=== PATIENT | male | born 1950 | race Caucasian/White ===

== ENCOUNTER → 2019-12-11 18:00 | Outpatient (CLI) | payer MEDICARE, OTHER, SELFPAY | PROVIDERS: PCP Family Medicine; Referring Provider Clinical Nurse Specialist; Visit Provider Clinical Nurse Specialist | DX: U07.1 COVID-19 (principal) | CPT/HCPCS: 87635; 94799; U0003 ==

== ENCOUNTER 2019-12-19 16:57 | Inpatient (IN) | payer MEDICARE, OTHER, SELFPAY ==
[2019-12-19] VITALS (10 sets, daily range): BP systolic 143–176; BP diastolic 86–112; PULSE 77–89; RESP 15–16; TEMP 36.6–37.3; O2SAT 93–95; BMI 29.9; BMI 30.6
--- NOTE | 2019-12-19 17:23 | EKG12_ITS ---
Test Reason : COVID Blood Pressure : / mmHG Vent. Rate : 086 BPM Atrial Rate : 086 BPM P-R Int : 194 ms QRS Dur : 086 ms QT Int : 402 ms P-R-T Axes : 054 -12 074 degrees QTc Int : 481 ms Sinus rhythm with Premature supraventricular complexes and with occasional Premature ventricular comp lexes Septal infarct , age undetermined Abnormal ECG Confirmed by WILLIAN KOCH, TREY ([id number]), mapping editor BRENDON CARLOS ([id number]) on 12/22/2019 9:31:52 AM Referred By: AZRA Confirmed By:TREY DORSEY MD
--- NOTE | 2019-12-19 17:24 | ED.DCSUM_ITS ---
History of Present Illness Chief Complaint: Shortness of Breath Informant: Patient Onset: Days Context: Gradual Onset Timing: Intermittent Current Severity: Mild Maximum Severity: Moderate Narrative: Patient present secondary to increased shortness of breath. He was diagnosed with Covid on the . He states he started getting symptoms of congestion and cough on the . He thought this was secondary to allergies as he had been out mowing his field without a mask on. He was tested on the and his Covid test was positive. Patient states he is had a couple episodes since that time where he has felt short of breath, the worst of which was last evening. He states he had to sleep sitting up last night due to increased shortness of breath when lying flat. He does have cough but states it has been significantly improving over the past couple of days. T-max was 100.0. - Past Medical History (1) Anxiety Status: Chronic (2) History of gastroesophageal reflux (GERD) Status: Chronic (3) History of hypertension Status: Chronic Past Medical History - Allergies and Home Meds Allergies/Adverse Reactions: Allergies No Known Allergies Allergy (Verified 12/19/19 16:59) Primary Care Physician: Luis Pak MD [Primary Care Provider] - Past Medical History: None Surgical History: total knee arthroplasty Smoking Status: Former smoker Review of Systems General: Denies: Chills, Fever Eyes: Denies: Visual changes - bilaterally ENT: Denies: Bilateral ear pain Cardiovascular: Denies: Chest pain Respiratory: Reports: Dyspnea, Cough - Minimal cough. Denies: Sputum Gastrointestinal: Denies: Abdominal pain, Nausea, Vomiting, Diarrhea Genitourinary: Denies: Dysuria Musculoskeletal: Denies: Swelling, Extremity Pain Skin: Denies: Rash Neurological: Denies: Headache Hematologic: Denies: Easy bruising, Easy bleeding Allergy: Denies: Uticaria Physical Exam Vital Signs/Narrative: Vital Signs Temp Pulse Resp BP Pulse Ox 12/19/19 17:12 83 16 162/93 H 95 12/19/19 16:58 98 F 89 16 154/112 H 93 Inital Vital Signs reviewed: Yes General: Well nourished, Well developed Head: Normocephalic ENT: Moist mucous membranes Neck: Supple Cardiovascular: Regular rate, Regular rhythm Respiratory: No distress, CTA bilaterally Abdomen: Soft, Nontender Extremities: Nontender Skin: Normal color, No rash Neurological: Alert, Oriented x3, Normal Strength, Normal Sensation Psychological: Normal affect Diagnostic/Tx/Re-eval Impressions Chest X-Ray 12/19/19 17:55 IMPRESSION: Hyperexpansion suggesting a component of COPD without acute consolidation, infiltrates, pleural effusion or cardiomegaly. Electronically Signed: Candace Downey MD at 18:18 EDT , Service support , 12/19/19 17:55 Chest 1 View (Portable) [RAD] Stat Laboratory Results 12/19/19 12/19/19 12/19/19 17:40 17:40 17:40 WBC 3.2 L RBC 4.95 Hgb 14.4 Hct 43.6 MCV 88.1 MCH 29.1 MCHC 33.0 RDW Std Deviation 42.5 RDW Coeff of Shira 13.2 Plt Count 188 MPV 9.9 Immature Gran % (Auto) 0.300 Neut % (Auto) 59.0 Lymph % (Auto) 28.6 Fajardo % (Auto) 10.9 H Eos % (Auto) 0.9 Baso % (Auto) 0.3 Absolute Neuts (auto) 1.9 L Absolute Lymphs (auto) 0.92 Nucleated RBC % 0 Differential Comment SCANNED D-Dimer Quant (PE/DVT) 0.55 H* Sodium 144 Potassium 3.0 L Chloride 110 H Carbon Dioxide 26.0 Anion Gap 8 BUN 15 Creatinine 0.70 Estim Creat Clear Calc 85.67 Est GFR (MDRD) Af Amer 146 Est GFR (MDRD) Non-Af 120 BUN/Creatinine Ratio 21.6 H Glucose 93 Calcium 8.6 Troponin I 0.088 H B-Natriuretic Peptide 12/19/19 17:40 WBC RBC Hgb Hct MCV MCH MCHC RDW Std Deviation RDW Coeff of Sihra Plt Count MPV Immature Gran % (Auto) Neut % (Auto) Lymph % (Auto) Fajardo % (Auto) Eos % (Auto) Baso % (Auto) Absolute Neuts (auto) Absolute Lymphs (auto) Nucleated RBC % Differential Comment D-Dimer Quant (PE/DVT) Sodium Potassium Chloride Carbon Dioxide Anion Gap BUN Creatinine Estim Creat Clear Calc Est GFR (MDRD) Af Amer Est GFR (MDRD) Non-Af BUN/Creatinine Ratio Glucose Calcium Troponin I B-Natriuretic Peptide 35.3 - EKG Initial EKG Interpretation: Sinus Rhythm - Sinus 86 with PACs. No acute ischemia. Nonspecific lateral T wave flattening. - Medical Decision Making Patient is observed on quality assurance monitor body throughout his ED stay. No arrhythmias noted. O2 sat has remained stable at 93 to 94% on room air. Test results are discussed with the patient. Chest x-ray is clear. D-dimer is 0.55, normal when age-adjusted. His potassium is slightly low at 3.0 and oral potassium replacement will be given. His troponin is abnormal at 0.088. I do not see any ischemic changes on his EKG. Patient denies any known history of cardiac disease and states he had a couple heart caths when he was in his early 50s that were normal. With the patient having a few spells of more significant shortness of breath, I do question if this may be cardiac in etiology and not related to his Covid infection. I have recommended observation overnight for cycling of cardiac enzymes and further evaluation. ED Disposition - Plan for ED Patient: Disposition: Acute Care Hospital [facility] Diagnosis: COVID-19, Hypokalemia, Elevated troponin Referrals: Luis Pak MD [Primary Care Provider] -
[2019-12-19 17:55] LABS: Absolute Lymphocyte Count 0.92 X10^3/uL (0.83-4.51); Absolute Neutrophil Count 1.9 X10^3/uL (2.0-7.7); Basophil# 0.01 X10^3/uL; Basophil% 0.3 % (0-1); Eosinophil# 0.03 X10^3/uL; Eosinophils% 0.9 % (0-5); Hematocrit 43.6 % (40-54); Hemoglobin 14.4 g/dL (13.0-16.5); Lymphocyte # 0.92 X10^3/ul (4.0); Lymphocyte % 28.6 % (19-41); Mean Corpuscular Hgb 29.1 pg (27.0-32.0); Mean Corpuscular Volume 88.1 fL (80-94); Mean Platelet Vol. 9.9 fl (6.2-12.0); Monocyte# 0.35 X10^3/uL; Monocyte% 10.9 % (0-10); NRBC Flagged by Analyzer 0 % (0-5); POSITIVE MORPHOLOGY YES; Platelet Count 188 K/mm3 (150-450); RBC Distribution Width CV 13.2 % (11.6-14.6); RBC Distribution Width SD 42.5 fl (35.1-43.9); Red Blood Count 4.95 M/mm3 (4.6-6.2); White Blood Count 3.2 K/mm3 (4.4-11.0)
--- NOTE | 2019-12-19 17:55 | RAD_ITS ---
STUDY: X-RAY CHEST REASON FOR EXAM: Male, 69 years old. SOB, TESTED + FOR COVID 1 WK AGO TECHNIQUE: 1 view COMPARISON: Prior chest radiograph of 09/28/2011 FINDINGS: Generalized hyperexpansion without new infiltrates, consolidation or pleural effusion. There is no demonstrated pleural abnormality. Normal size heart. Normal mediastinum and [place]. Normal visualized pulmonary arteries. Mild elongation of the thoracic aorta. There are diffuse degenerative changes of the visualized thoracic spine. Normal visualized ribs, clavicles, and shoulders. There is no demonstrated abnormality of the visualized soft tissue structures of the upper abdomen. RAD/Chest 1 View (Portable) IMPRESSION: Hyperexpansion suggesting a component of COPD without acute consolidation, infiltrates, pleural effusion or cardiomegaly. Electronically Signed: Candace Downey MD at 18:18 EDT , Service support ,
[2019-12-19 18:02] LABS: D-Dimer Quantitative (DVT/PE) 0.55 FEU/ug/m (0.27-0.49)
[2019-12-19 18:03] LABS: Differential Indicated SCAN CRITERIA MET
[2019-12-19 18:08] LABS: Anion Gap 8 (5-15); BUN 15 mg/dL (7-18); BUN/Creat Ratio 21.6 RATIO (10-20); Calcium,Total 8.6 mg/dL (8.5-10.1); Chloride 110 mmol/L (98-107); EST Glomerular Filtration Rate 120 mL/min (>60); Est Glom Filt Rate - Afr Amer 146 mL/min (>60); Estimated Creatinine Clearance 85.67 ml/min; Glucose 93 mg/dL (74-106); Sodium Level 144 mmol/L (136-145)
[2019-12-19 18:25] LABS: Differential Comment SCANNED
[2019-12-19 18:28] LABS: BNP,B-Type NATRIURETIC PEPTIDE 35.3 pg/mL (0-100)
--- NOTE | 2019-12-19 19:28 | PCM.HP.STD ---
Problem List (1) Anxiety Status: Chronic (2) COVID-19 Status: Acute (3) Hypokalemia Status: Acute (4) Elevated troponin Status: Acute (5) History of hypertension Status: Chronic (6) History of gastroesophageal reflux (GERD) Status: Chronic History of Present Illness Date of Admission: 12/19/19 Chief Complaint: sob The patient is a 69 year old M with a significant history of hypertension who presented to emergency department with progressively worsening shortness of breath. Reportedly patient's mowed on December 05 and developed sinus congestion and shortness of breath. He was diagnosed with cause 8 on December 10. Again 3 days ago he noticed a progressively worsening shortness of breath which is more prevalent at night. Also at daytime he has some on and off shortness of breath. Reports proximal nocturnal dyspnea; orthopnea and cough; cough. He denies any change in taste or smell sensation. He reports occasional wheezing. He denies a history of COPD. At emergent department patient troponin was elevated so a decision was made to admit patient. He denies chest pain. Past Medical History Past Medical History (Chronic Problems): Chronic Problems Anxiety (Chronic) History of hypertension (Chronic) History of gastroesophageal reflux (GERD) (Chronic) Allergies No Known Allergies Allergy (Verified 12/19/19 16:59) Home Medications: Ambulatory Orders Medication Instructions Recorded Citalopram Hydrobromide 20 mg PO DAILY 12/19/19 [Citalopram HBr] Fluticasone 0.05% [Flonase Nasal 2 spray NASAL DAILY 12/19/19 [place]] Surgical History: cholecystectomy, total knee arthroplasty Smoking Status: Former smoker Alcohol: Occasional - *Family History Maternal History Items: - - His mother has gastrointestinal problems Paternal History Items: Heart Disease Review of Systems Constitutional: Reports: Fever. Denies: Weight Change HEENT: Reports: Nasal Congestion, Sinus Congestion. Denies: Head Aches, Sinus Drainage Cardiovascular: Reports: Orthopnea, Paroxysmal Noc. Dyspnea. Denies: Chest Pain, Palpitations Respiratory: Reports: Cough, Shortness of breath at rest. Denies: Sputum production Gastrointestinal: Denies: Abdominal Pain, Nausea, Vomiting Genitourinary: Denies: Dysuria Musculoskeletal: Denies: Joint Pain, Joint Tenderness Skin: Denies: Rash, Wounds Neurological: Denies: Numbness, Tingling, Focal weakness Psychiatric: Denies: Anxiety, Depression, Homicidal Ideations, Suicidal Ideations Hematologic/ Lymphatic: Denies: Easy Bruising, Easy Bleeding VTE Information - Inpt Only VTE Present on Admission: No VTE Mechan Device Prophylaxis: None VTE Pharm Prophylaxis ordered?: Yes Patient Problems: Active and Suspected Problems COVID-19 (Acute) Hypokalemia (Acute) Elevated troponin (Acute) - Physical Exam Vitals/I&O's: Vital Signs Temp Pulse Resp BP Pulse Ox 98 F 83 16 162/93 H 95 12/19/19 16:58 12/19/19 17:12 12/19/19 17:12 12/19/19 17:12 12/19/19 17:12 Oxygen Delivery Method Room Air Weight: 108.862 kg Body Mass Index (BMI) 29.9 General: Alert, Oriented x3, Cooperative HEENT: Atraumatic, PERRLA, EOMI, Normocephalic Neck: Supple, No JVD, Negative Carotid Bruits Lungs: No rhonchi, No wheeze, No rales, Diminished Cardiovascular: Regular rate, Normal S1, Normal S2, No murmurs Abdomen: Bowel Sounds Present, Soft, Non Tender Extremities: No edema, Capillary Refill Less than 3 Seconds Skin: No rashes, No breakdown Musculoskeletal: No Tenderness to Palpation of Joints or Extremities, - - Amputated fifth toed of right foot. Neurological: Cranial nerves II-XII grossly intact Psych/Mental Status: Normal Affect, Appropriate Laboratory Results 12/19/19 17:40: WBC 3.2 L, RBC 4.95, Hgb 14.4, Hct 43.6, MCV 88.1, MCH 29.1, MCHC 33.0, RDW Std Deviation 42.5, RDW Coeff of Shira 13.2, Plt Count 188, MPV 9.9, Immature Gran % (Auto) 0.300, Neut % (Auto) 59.0, Lymph % (Auto) 28.6, Ransom % (Auto) 10.9 H, Eos % (Auto) 0.9, Baso % (Auto) 0.3, Absolute Neuts (auto) 1.9 L, Absolute Lymphs (auto) 0.92, Nucleated RBC % 0, Differential Comment SCANNED 12/19/19 17:40: D-Dimer Quant (PE/DVT) 0.55 H* 12/19/19 17:40: Sodium 144, Potassium 3.0 L, Chloride 110 H, Carbon Dioxide 26.0, Anion Gap 8, BUN 15, Creatinine 0.70, Estim Creat Clear Calc 85.67, Est GFR (MDRD) Af Amer 146, Est GFR (MDRD) Non-Af 120, BUN/Creatinine Ratio 21.6 H, Glucose 93, Calcium 8.6, Troponin I 0.088 H 12/19/19 17:40: B-Natriuretic Peptide 35.3 Assessment/Plan All Active Problems COVID-19 (Acute) Hypokalemia (Acute) Elevated troponin (Acute) The patient is a 69 year old M with a significant history of hypertension who presented to emergency department with progressively worsening shortness of breath; paroxysmal nocturnal dyspnea; dry cough; nasal congestion; in the setting of COVID-19 infection who was found to have elevated troponin. SARS-2 COVID-19 infection Positive covid test on December 11, 2019. We will start patient on dexamethasone 6 mg p.o. daily. Check CMP We will get a procalcitonin; strep pneumonia antigen; and Legionella urine antigen. PRN pro-air inhalation ordered. Schedule Mucinex ordered. Continue home fluticasone. We will consult service station equipment mechanic. Enhanced isolation precautions. Elevated troponin Patient with no chest pain. Demand ischemia. EKG showed PAC and T wave flattening in aVL; V5 and V6. Received aspirin 324 mg in emergency department Aspirin 81 mg daily ordered. BNP is unremarkable We will trend troponin Hypokalemia Received a pubertal supplementation emergency department Will order additional IV proton supplementation Trend CMP. Elevated d-dimer Normal per age adjusted. On therapeutic dose DVT prophylaxis SCD. Covid protocol. Inpatient E&M: 99513 Init Hosp L3
[2019-12-19 20:02] LABS: Magnesium 2.3 mg/dL (1.6-2.6)
[2019-12-19] MEDS: Aspirin 81 MG TAB.CHEW 324 MG PO (20:16)
[2019-12-19] MEDS: Potassium Chloride 10mEq/100mL 10 MEQ/100 ML IV.SOLN. 100 MEQ IV BOLUS ×3 (21:00→23:56)
[2019-12-19] MEDS: dexAMETHasone 4 MG Tablet 6 MG PO (22:10)
[2019-12-19] MEDS: Enoxaparin 30 MG/0.3 ML Syringe SC (22:25)
[2019-12-20] VITALS (39 sets, daily range): BP systolic 114–181; BP diastolic 69–110; PULSE 73–145; RESP 13–96; TEMP 36.6–37.2; O2SAT 91–97
[2019-12-20] MEDS: hydrALAZINE 20 MG/ML Vial 5 MG IV (00:54)
[2019-12-20] MEDS: Potassium Chloride 10mEq/100mL 10 MEQ/100 ML IV.SOLN. 100 MEQ IV BOLUS (01:10)
--- NOTE | 2019-12-20 01:58 | EKG12_ITS ---
Test Reason : AFIB Blood Pressure : / mmHG Vent. Rate : 102 BPM Atrial Rate : 102 BPM P-R Int : 000 ms QRS Dur : 078 ms QT Int : 352 ms P-R-T Axes : 000 -04 114 degrees QTc Int : 458 ms Atrial fibrillation Abnormal ECG When compared with ECG of 19-DEC-2019 17:41, Junctional rhythm has replaced Sinus rhythm Nonspecific T wave abnormality now evident in Inferior leads Confirmed by ENDER KOCH, CHRISTINA ([id number]), editorial manager LETICIA NUNEZ ([id number] on 12/30/2019 8:53:25 AM Referred By: Melissa Contreras Confirmed By:CHEO HANDLEY MD
--- NOTE | 2019-12-20 02:02 | EKG12_ITS ---
Test Reason : AFIB Blood Pressure : / mmHG Vent. Rate : 143 BPM Atrial Rate : 096 BPM P-R Int : 000 ms QRS Dur : 088 ms QT Int : 312 ms P-R-T Axes : 000 -11 078 degrees QTc Int : 481 ms Atrial fibrillation with premature ventricular or aberrantly conducted complexes Abnormal ECG When compared with ECG of 20-DEC-2019 01:58, MANUAL COMPARISON REQUIRED, DATA IS UNCONFIRMED Confirmed by ENDER KOCH, CHRISTINA ([id number]), editor trade journal LETICIA NUNEZ ([id number] on 12/30/2019 8:53:42 AM Referred By: Melissa Contreras Confirmed By:CHEO HANDLEY MD
--- NOTE | 2019-12-20 02:24 | PCM.PN.BLA ---
Progress Note A. fib with RVR?patient went into A. fib with RVR with heart rate in the 150s. Cardizem 10 mg IV bolus x1. Stop hydralazine. Therapeutic dose of Lovenox ordered. Magnesium is normal. Potassium has been replaced. Will check TSH. Will get echocardiogram. STROKE Vital Signs/Narrative: Vital Signs Pulse BP BP 12/20/19 01:00 73 159/87 H 12/20/19 00:54 83 166/102 H 12/20/19 00:45 91 166/102 H 12/20/19 00:30 80 161/110 H 12/20/19 00:10 163/88 H 12/19/19 23:45 143/86 H 12/19/19 23:25 77 12/19/19 23:15 176/94 H
[2019-12-20] MEDS: dilTIAZem 25 MG/5 ML Vial 10 MG IV BOLUS ×2 (02:33→03:30)
[2019-12-20] MEDS: Enoxaparin 80 MG/0.8 ML Syringe SC (02:42)
--- NOTE | 2019-12-20 02:45 | NURSING ---
afib noted on monitor with heart rate up to 150's, EKG obtained, pt complaining of some SOB, placed on 2L NC with improvement, no chest/back/arm/jaw pain, no palpitations, MD aware, new orders received.
[2019-12-20 03:18] LABS: Thyroid Stim Hormone (TSH) 1.45 uIU/mL (0.358-3.74)
[2019-12-20] MEDS: 0.9% Saline Lock 10 ML Syringe IV (03:31)
[2019-12-20 04:15] LABS: Absolute Lymphocyte Count 0.46 X10^3/uL (0.83-4.51); Absolute Neutrophil Count 2.9 X10^3/uL (2.0-7.7); Hematocrit 44.6 % (40-54); Hemoglobin 14.7 g/dL (13.0-16.5); Lymphocyte # 0.46 X10^3/ul (4.0); Lymphocyte % 13.4 % (19-41); Mean Corpuscular Hgb 29.3 pg (27.0-32.0); Mean Corpuscular Volume 88.8 fL (80-94); Mean Platelet Vol. 10.3 fl (6.2-12.0); Monocyte# 0.11 X10^3/uL; Monocyte% 3.2 % (0-10); NRBC Flagged by Analyzer 0 % (0-5); Neutrophil # 2.86 X10^3/uL (2.7-7.7); Neutrophil % 83.1 % (47-70); POSITIVE DIFFERENTIAL YES; POSITIVE MORPHOLOGY YES; Platelet Count 198 K/mm3 (150-450); RBC Distribution Width CV 13.2 % (11.6-14.6); Red Blood Count 5.02 M/mm3 (4.6-6.2); White Blood Count 3.4 K/mm3 (4.4-11.0)
[2019-12-20 04:20] LABS: Differential Indicated SCAN CRITERIA MET
[2019-12-20 04:27] LABS: ALB/GLOB Ratio 0.8 RATIO (0.9-2.4); AST(SGOT) 50 U/L (15-37); Alanine Aminotransfer ALT/SGPT 73 U/L (16-61); Albumin, Serum 3.2 g/dL (3.2-5.0); Alkaline Phosphatase 80 U/L (45-117); Anion Gap 7 (5-15); BUN 12 mg/dL (7-18); BUN/Creat Ratio 19.7 RATIO (10-20); Calcium,Total 8.5 mg/dL (8.5-10.1); Chloride 110 mmol/L (98-107); Creatinine, Serum 0.61 mg/dL (0.70-1.30); EST Glomerular Filtration Rate 140 mL/min (>60); Est Glom Filt Rate - Afr Amer 169 mL/min (>60); Estimated Creatinine Clearance 85.67 ml/min; Globulin 4.2 g/dL (2.2-4.2); Glucose 127 mg/dL (74-106); Potassium 3.9 mmol/L (3.5-5.1); Protein, Total 7.4 g/dL (6.4-8.2); Sodium Level 141 mmol/L (136-145)
[2019-12-20 04:50] LABS: Differential Comment SCANNED
--- NOTE | 2019-12-20 07:38 | CON.PCM_ITS ---
Problem List (1) Atrial fibrillation, new onset Status: Acute (2) COVID-19 Status: Acute (3) Elevated troponin Status: Acute (4) History of hypertension Status: Chronic (5) History of gastroesophageal reflux (GERD) Status: Chronic (6) History of chest pain Status: Inactive Reason for Consult Date of Consultation: 12/20/19 Reason for Consultation: COVID, A. fib with RVR History of Present Illness: The patient is a 69 year old M, with past medical history listed below, who presented [facility] on 12/19/2019 secondary to progressive shortness of breath. Patient was reportedly diagnosed with COVID-19 on December 10 and was having cough and congestion. Patient had thought it was allergies, but then subsequently tested positive for COVID-19. Patient states he has had a couple of episodes of dyspnea, but overnight had difficulty with shortness of breath is, especially when lying flat. Patient states his highest temperature was 100 ?F. In the ER, patient was noted to be hypertensive at 162/93 and saturating 93 to 94% on room air. Chest x-ray was unremarkable and d-dimer was only slightly elevated. Potassium was low and troponin was slightly elevated. EKG was unremarkable. Patient was admitted to the floor for further evaluation and for cardiac rule out. While admitted to the intensive care unit/COVID cohort unit, patient developed A. fib with RVR. Patient had heart rates in the 150s and required Cardizem boluses for rate control. Patient was also placed on Lovenox therapy at therapeutic dosing. Patient has remained hypertensive throughout hospital stay and was requiring minimal nasal cannula oxygen to maintain saturations. Patient reports he feels subjectively improved compared to previous. Patient does admit that he has not really left the bed, so is unclear about his shortness of breath on exertion. Patient does have a cough that is nonproductive, but feels this is grossly unchanged. Patient denies any GI symptomatology. Patient denies any fevers or chills. Patient does have a previous smoking history and reports only occasional alcohol use. Patient does not report any history of obstructive lung disease in the past. Review of systems otherwise negative from a constitutional, HEENT, respiratory, cardiovascular, GI, genitourinary, musculoskeletal, skin, neurologic, psychiatric and hematologic system unless stated above. Past Medical History Past Medical History (Chronic Problems): Chronic Problems Anxiety (Chronic) History of hypertension (Chronic) History of gastroesophageal reflux (GERD) (Chronic) Allergies No Known Allergies Allergy (Verified 12/19/19 16:59) Home Medications: Ambulatory Orders Medication Instructions Recorded Amoxicillin/Potassium Clav 1 ea PO BID 12/19/19 [Augmentin 875-125 Tablet] Benzonatate [Tessalon Perle] 100 mg PO TID PRN PRN 12/19/19 Citalopram Hydrobromide 20 mg PO DAILY 12/19/19 [Citalopram HBr] Fluticasone 0.05% [Flonase Nasal 2 spray NASAL DAILY 12/19/19 [place]] Surgical History: cholecystectomy, total knee arthroplasty Smoking Status: Former smoker Alcohol: Occasional - *Family History Maternal History Items: - - His mother has gastrointestinal problems Paternal History Items: Heart Disease Review of Systems Comment: See HPI Patient Problems: Active and Suspected Problems COVID-19 (Acute) Hypokalemia (Acute) Elevated troponin (Acute) Atrial fibrillation, new onset (Acute) Objective: Chest x-ray was personally reviewed and does show some hyperinflation, but no infiltrates are noted. - Physical Exam Vitals/I&O's: Vital Signs Temp Pulse Resp BP Pulse Ox 37.2 C 102 H 15 133/78 H 93 12/20/19 03:15 12/20/19 07:24 12/20/19 04:30 12/20/19 04:45 12/20/19 04:30 Oxygen Flow Rate (L/min) 2 Oxygen Delivery Method Nasal Cannula Weight: 111 kg Body Mass Index (BMI) 30.6 Intake and Output for Last 24 Hours 12/18/19 12/19/19 12/20/19 23:59 23:59 23:59 Intake Total 320.25 / 320.25 522 / 522 Output Total 90 / 90 450 / 450 Balance 230.25 / 230.25 72 / 72 General: Alert, Oriented x3, Cooperative, No apparent distress, Well developed, Well nourished, - - Speaking in full sentences. HEENT: Atraumatic, PERRLA, EOMI, Normocephalic, - - No scleral icterus or injection noted Oral: Moist Mucosa, No Gingival or Mucosal Lesions/ Ulcerations Neck: Supple, No JVD, No Nodes, Trachea Midline Lungs: Diminished, Rales - Bilateral bases Cardiovascular: Normal S1, Normal S2, No murmurs, Irregular Rate, No rub noted, No Gallop, Tachycardic Abdomen: Bowel Sounds Present, Soft, Non Tender, Non-Distended Extremities: No clubbing, No cyanosis, No edema, Capillary Refill Less than 3 Seconds Skin: No rashes, No breakdown Musculoskeletal: No Tenderness to Palpation of Joints or Extremities Lymphatic: No Cervical, Supraclavicular, or Inguinal Adenopathy Neurological: Cranial nerves II-XII grossly intact, Neuro grossly intact, Motor Exam 5/5 strength throughout Psych/Mental Status: Alert and oriented to time, place, person, mood and affect Microbiology Past 72 Hours 12/19/19 23:10 Urine, Clean Catch Streptococcus pneumoniae Antigen (M - Final 12/19/19 23:10 Urine, Clean Catch Legionella Antigen - Final Laboratory Results 12/19/19 17:40: WBC 3.2 L, RBC 4.95, Hgb 14.4, Hct 43.6, MCV 88.1, MCH 29.1, MCHC 33.0, RDW Std Deviation 42.5, RDW Coeff of Shira 13.2, Plt Count 188, MPV 9.9, Immature Gran % (Auto) 0.300, Neut % (Auto) 59.0, Lymph % (Auto) 28.6, [place] % (Auto) 10.9 H, Eos % (Auto) 0.9, Baso % (Auto) 0.3, Absolute Neuts (auto) 1.9 L, Absolute Lymphs (auto) 0.92, Nucleated RBC % 0, Differential Comment SCANNED 12/19/19 17:40: D-Dimer Quant (PE/DVT) 0.55 H* 12/19/19 17:40: Sodium 144, Potassium 3.0 L, Chloride 110 H, Carbon Dioxide 26.0, Anion Gap 8, BUN 15, Creatinine 0.70, Estim Creat Clear Calc 85.67, Est GFR (MDRD) Af Amer 146, Est GFR (MDRD) Non-Af 120, BUN/Creatinine Ratio 21.6 H, Glucose 93, Calcium 8.6, Troponin I 0.088 H 12/19/19 17:40: B-Natriuretic Peptide 35.3 12/19/19 17:40: Magnesium 2.3 12/19/19 21:20: Procalcitonin Pending 12/19/19 21:20: Troponin I 0.073 H 12/20/19 00:10: Troponin I 0.075 H 12/20/19 00:10: TSH 1.45 12/20/19 03:40: WBC 3.4 L, RBC 5.02, Hgb 14.7, Hct 44.6, MCV 88.8, MCH 29.3, MCHC 33.0, RDW Std Deviation 43.0, RDW Coeff of Shira 13.2, Plt Count 198, MPV 10.3, Immature Gran % (Auto) 0.300, Neut % (Auto) 83.1 H, Lymph % (Auto) 13.4 L, [place] % (Auto) 3.2, Eos % (Auto) 0.0, Baso % (Auto) 0.0, Absolute Neuts (auto) 2.9, Absolute Lymphs (auto) 0.46 L, Nucleated RBC % 0, Differential Comment SCANNED, Diff Path Review August12/20/19 03:40: Sodium 141, Potassium 3.9, Chloride 110 H, Carbon Dioxide 24.0, Anion Gap 7, BUN 12, Creatinine 0.61 L, Estim Creat Clear Calc 85.67, Est GFR (MDRD) Af Amer 169, Est GFR (MDRD) Non-Af 140, BUN/Creatinine Ratio 19.7, Glucose 127 H, Calcium 8.5, Total Bilirubin 0.90, AST 50 H, ALT 73 H, Alkaline Phosphatase 80, Total Protein 7.4, Albumin 3.2, Globulin 4.2, Albumin/Globulin Ratio 0.8 L Current Medications Acetaminophen (Tylenol) 650 mg PO Q6H PRN PRN PRN Reason: Pain Score 1-10/Temp > 100.7 F Albuterol Sulfate (Ventolin Hfa (Sp)) 2 puff INHALATION Q4H PRN PRN PRN Reason: SOB/WHEEZING Aspirin (Aspirin, Baby) 81 mg PO DAILY@0800 [facility] Benzonatate (Tessalon Perle) 100 mg PO TID PRN PRN PRN Reason: COUGH Carvedilol (Coreg) 6.25 mg PO BIDCM [facility] Citalopram Hydrobromide (Celexa) 5 mg PO DAILY [facility] Dexamethasone (Decadron) 6 mg PO DAILY@0800 [facility] Last Admin: 12/19/19 22:10 Dose: 6 mg Documented by: Enoxaparin Sodium (Lovenox) 110 mg SC Q12 JAMES Fluticasone Propionate (Flonase Nasal [place]) 2 spray NASAL DAILY JAMES Sodium Chloride () 250 mls @ 15 mls/hr IV .[id number] PRN PRN Reason: Saline Flush Last Infusion: 12/20/19 06:38 Dose: 0 mls/hr Documented by: Sodium Chloride () 250 mls @ 15 mls/hr IV .[id number] PRN PRN Reason: Additional IVPB Infusion Melatonin (Melatonin) 3 mg PO QHS PRN PRN PRN Reason: INSOMNIA Miscellaneous Information (Pocket Chamber) 1 each INHALATION PRN PRN PRN Reason: USE WITH VENTOLIN MDI Sodium Chloride () 10 - 40 ml IV UD PRN PRN Reason: SALINE FLUSH Last Admin: 12/20/19 03:31 Dose: 40 ml Documented by: Clinical Impression(s) from Imaging Studies Chest X-Ray 12/19/19 17:55 IMPRESSION: Hyperexpansion suggesting a component of COPD without acute consolidation, infiltrates, pleural effusion or cardiomegaly. Electronically Signed: Candace Downey MD at 18:18 EDT , Service support , Assessment/Plan Active and Suspected Problems COVID-19 (Acute) Hypokalemia (Acute) Elevated troponin (Acute) Atrial fibrillation, new onset (Acute) RECOMMENDATIONS: 1. Initiate therapeutic anticoagulation 2. Add Coreg for rate control and hypertension 3. Wean oxygen as tolerated 4. Defer to hospitalist on cardiology referral 5. Hold on convalescent serum and Remdesivir for now 6. Await echocardiogram 7. Outpatient complete PFT IMPRESSIONS: 1. Acute hypoxic respiratory insufficiency secondary to probable pulmonary edema/possible COPD Goal suspicion for pulmonary edema leading to more hypoxia than COVID-19. Patient's chest x-ray was unremarkable, but does show some hyperinflation, so COPD would be a consideration. Wean oxygen as tolerated. Anticipate some improvement after rate control. 2. Acute CHF secondary to A. fib with RVR Patient does not have a previous echocardiogram. Would assume an element of diastolic dysfunction given age that may be exacerbated by A. fib with RVR. Rate control will be added. Patient will be placed on therapeutic Lovenox for now, but may be able to be switched to a 10 a inhibitor tomorrow. Echocardiogram has been ordered. Would defer to hospitalist on cardiology involvement. 3. COVID-19 infection Patient does have some hyperinflation on chest x-ray with presentation, but no significant groundglass opacity. Patient is on day 8 of infection, so may progress from here. Would hold off on antiviral and convalescent serum for now. Current hypoxia likely secondary to A. fib with RVR more than pneumonitis from the COVID-19. Cannot exclude the stress of COVID-19 leading to new onset A. fib RVR. 4. Depression/elevated troponin/hypokalemia/obesity Complicates care, management, recovery and prognosis. Okay to continue baseline antidepressant. Potassium supplementation as indicated. Inpatient E&M: 52722 Init Hosp L3
[2019-12-20] MEDS: Fluticasone 0.05% 1 SPRAY NASAL.SRY 2 SPRAY NASAL (08:14)
[2019-12-20] MEDS: dexAMETHasone 4 MG Tablet 6 MG PO (08:15)
[2019-12-20] MEDS: Citalopram 10 MG Tablet 5 MG PO (08:17)
[2019-12-20] MEDS: Carvedilol 6.25 MG Tablet PO ×2 (08:18→20:30)
[2019-12-20] MEDS: Aspirin 81 MG TAB.CHEW PO (08:19)
[2019-12-20] MEDS: Enoxaparin 120 MG/0.8 ML Syringe 110 MG SC ×2 (08:19→20:29)
[2019-12-20 09:16] LABS: Procalcitonin 0.04 ng/mL (0.00-0.09)
--- NOTE | 2019-12-20 09:59 | PCM.PN.HOSP ---
Patient Problems: Active and Suspected Problems COVID-19 (Acute) Hypokalemia (Acute) Elevated troponin (Acute) Atrial fibrillation, new onset (Acute) Subjective: Patient seen and examined. He feels much better today and states that shortness of breath is improved. He denies any fever or chills, chest pain, nausea vomiting or diarrhea. Review of systems otherwise negative. He has been admitted for COVID-19 infection and A. fib with RVR. Labs and vitals reviewed. Heart rate is in the 110s to 120s today. He has been started on p.o. carvedilol. Vitals/I&O's: Vital Signs Temp Pulse Resp BP Pulse Ox 98.9 F 102 H 15 133/78 H 93 12/20/19 03:15 12/20/19 07:24 12/20/19 04:30 12/20/19 04:45 12/20/19 08:00 Oxygen Flow Rate (L/min) 2 Oxygen Delivery Method Room Air Weight: 244 lb 11.41 oz Body Mass Index (BMI) 30.6 Intake and Output for Last 24 Hours 12/18/19 12/19/19 12/20/19 23:59 23:59 23:59 Intake Total 320.25 / 320.25 522 / 522 Output Total 90 / 90 450 / 450 Balance 230.25 / 230.25 72 / 72 General: Alert, Oriented x3, Cooperative, No apparent distress HEENT: Atraumatic, PERRLA, EOMI, Normocephalic Oral: Moist Mucosa Neck: Supple, No JVD, Negative Carotid Bruits Lungs: - - Mildly diminished breath sounds bibasilar. No wheezes or crackles. On 2 L of oxygen. Cardiovascular: Normal S2, Irregular Rate - A. fib with RVR., Tachycardic Abdomen: Bowel Sounds Present, Soft, Non Tender, Non-Distended, No Hepato-splenomegaly Extremities: No clubbing, No cyanosis, No edema, Capillary Refill Less than 3 Seconds Skin: No rashes, No breakdown Musculoskeletal: No Tenderness to Palpation of Joints or Extremities Lymphatic: No Cervical, Supraclavicular, or Inguinal Adenopathy Neurological: Cranial nerves II-XII grossly intact, Neuro grossly intact, Motor Exam 5/5 strength throughout Psych/Mental Status: Normal Affect, Appropriate, Alert and oriented to time, place, person, mood and affect Microbiology Past 72 Hours 12/19/19 23:10 Urine, Clean Catch Streptococcus pneumoniae Antigen (M - Final 12/19/19 23:10 Urine, Clean Catch Legionella Antigen - Final Laboratory Results 12/19/19 17:40: WBC 3.2 L, RBC 4.95, Hgb 14.4, Hct 43.6, MCV 88.1, MCH 29.1, MCHC 33.0, RDW Std Deviation 42.5, RDW Coeff of Shira 13.2, Plt Count 188, MPV 9.9, Immature Gran % (Auto) 0.300, Neut % (Auto) 59.0, Lymph % (Auto) 28.6, [place] % (Auto) 10.9 H, Eos % (Auto) 0.9, Baso % (Auto) 0.3, Absolute Neuts (auto) 1.9 L, Absolute Lymphs (auto) 0.92, Nucleated RBC % 0, Differential Comment SCANNED 12/19/19 17:40: D-Dimer Quant (PE/DVT) 0.55 H* 12/19/19 17:40: Sodium 144, Potassium 3.0 L, Chloride 110 H, Carbon Dioxide 26.0, Anion Gap 8, BUN 15, Creatinine 0.70, Estim Creat Clear Calc 85.67, Est GFR (MDRD) Af Amer 146, Est GFR (MDRD) Non-Af 120, BUN/Creatinine Ratio 21.6 H, Glucose 93, Calcium 8.6, Troponin I 0.088 H 12/19/19 17:40: B-Natriuretic Peptide 35.3 12/19/19 17:40: Magnesium 2.3 12/19/19 21:20: Procalcitonin 0.04 12/19/19 21:20: Troponin I 0.073 H 12/20/19 00:10: Troponin I 0.075 H 12/20/19 00:10: TSH 1.45 12/20/19 03:40: WBC 3.4 L, RBC 5.02, Hgb 14.7, Hct 44.6, MCV 88.8, MCH 29.3, MCHC 33.0, RDW Std Deviation 43.0, RDW Coeff of Shira 13.2, Plt Count 198, MPV 10.3, Immature Gran % (Auto) 0.300, Neut % (Auto) 83.1 H, Lymph % (Auto) 13.4 L, [place] % (Auto) 3.2, Eos % (Auto) 0.0, Baso % (Auto) 0.0, Absolute Neuts (auto) 2.9, Absolute Lymphs (auto) 0.46 L, Nucleated RBC % 0, Differential Comment SCANNED, Diff Path Review August12/20/19 03:40: Sodium 141, Potassium 3.9, Chloride 110 H, Carbon Dioxide 24.0, Anion Gap 7, BUN 12, Creatinine 0.61 L, Estim Creat Clear Calc 85.67, Est GFR (MDRD) Af Amer 169, Est GFR (MDRD) Non-Af 140, BUN/Creatinine Ratio 19.7, Glucose 127 H, Calcium 8.5, Total Bilirubin 0.90, AST 50 H, ALT 73 H, Alkaline Phosphatase 80, Total Protein 7.4, Albumin 3.2, Globulin 4.2, Albumin/Globulin Ratio 0.8 L Diagnostic Data Chest X-Ray 12/19/19 17:55 IMPRESSION: Hyperexpansion suggesting a component of COPD without acute consolidation, infiltrates, pleural effusion or cardiomegaly. Electronically Signed: Candace Downey MD at 18:18 EDT , Service support , Current Medications Acetaminophen (Tylenol) 650 mg PO Q6H PRN PRN PRN Reason: Pain Score 1-10/Temp > 100.7 F Albuterol Sulfate (Ventolin Hfa (Sp)) 2 puff INHALATION Q4H PRN PRN PRN Reason: SOB/WHEEZING Aspirin (Aspirin, Baby) 81 mg PO DAILY@0800 [facility] Last Admin: 12/20/19 08:19 Dose: 81 mg Documented by: Benzonatate (Tessalon Perle) 100 mg PO TID PRN PRN PRN Reason: COUGH Carvedilol (Coreg) 6.25 mg PO BIDCM [facility] Last Admin: 12/20/19 08:18 Dose: 6.25 mg Documented by: Citalopram Hydrobromide (Celexa) 5 mg PO DAILY [facility] [place] Last Admin: 12/20/19 08:17 Dose: 5 mg Documented by: Dexamethasone (Decadron) 6 mg PO DAILY@0800 [facility] [place] Last Admin: 12/20/19 08:15 Dose: 6 mg Documented by: Enoxaparin Sodium (Lovenox) 110 mg SC Q12 [facility] [place] Last Admin: 12/20/19 08:19 Dose: 110 mg Documented by: Fluticasone Propionate (Flonase Nasal [place]) 2 spray NASAL DAILY [facility] [place] Last Admin: 12/20/19 08:14 Dose: 2 spray Documented by: Sodium Chloride () 250 mls @ 15 mls/hr IV .[id number] PRN PRN Reason: Saline Flush Last Infusion: 12/20/19 06:38 Dose: 0 mls/hr Documented by: Sodium Chloride () 250 mls @ 15 mls/hr IV .[id number] PRN PRN Reason: Additional IVPB Infusion Melatonin (Melatonin) 3 mg PO QHS PRN PRN PRN Reason: INSOMNIA Miscellaneous Information (Pocket Chamber) 1 each INHALATION PRN PRN PRN Reason: USE WITH VENTOLIN MDI Sodium Chloride () 10 - 40 ml IV UD PRN PRN Reason: SALINE FLUSH Last Admin: 12/20/19 03:31 Dose: 40 ml Documented by: STROKE Vital Signs/Narrative: Vital Signs Pulse Pulse Ox 12/20/19 08:00 93 12/20/19 07:24 102 H Medical Necessity - Tobacco Use Smoking Status: Former smoker Assessment/Plan All Active Problems COVID-19 (Acute) Hypokalemia (Acute) Elevated troponin (Acute) Atrial fibrillation, new onset (Acute) #COVID-19 infection Feels better today. Feels like his shortness of breath has improved. He tested positive for COVID-19 on December 11, 2019. On dexamethasone 6 mg daily. And breathing treatments with bronchodilators. Pulmonology on board #A. fib with RVR Heart rate went up to the 150s yesterday and he required a bolus of Cardizem. Now on p.o. carvedilol 6.25 mg twice daily. Heart rate still in the 110s and 120s. IV Lopressor PRN. On therapeutic Lovenox. Get 2D echo. Consider getting cardiology consult tomorrow if patient's heart rate remains elevated and difficult to control. #Elevated troponin: Initial troponin was 0.088 but trended down subsequently to a clotilde of 0.073. Denies any chest pain. EKG showed no acute ST changes. Will get 2D echo in light of A. fib with RVR as well. #Acute hypoxic respiratory insufficiency due to COVID-19 infection: On 2 L of oxygen. Titrate oxygen and wean off as tolerated. On breathing treatments with bronchodilators. #Hypokalemia: Resolved #VT prophylaxis: Already on therapeutic Lovenox. Inpatient E&M: 47706 Subs Hosp L3
--- NOTE | 2019-12-20 18:02 | EKG12_ITS ---
Test Reason : Blood Pressure : / mmHG Vent. Rate : 086 BPM Atrial Rate : 086 BPM P-R Int : 204 ms QRS Dur : 084 ms QT Int : 390 ms P-R-T Axes : 056 -19 083 degrees QTc Int : 466 ms Normal sinus rhythm Septal infarct , age undetermined Abnormal ECG When compared with ECG of 20-DEC-2019 02:02, MANUAL COMPARISON REQUIRED, DATA IS UNCONFIRMED Confirmed by ENDER KOCH, CHRISTINA ([id number]), editor & co founder LETICIA NUNEZ ([id number] on 12/30/2019 8:53:53 AM Referred By: Confirmed By:CHEO HANDLEY MD
--- NOTE | 2019-12-20 18:30 | NURSING ---
converted to sr hr 90 ,ekg completed bp 136/88, dr angel informed
[2019-12-21 02:30] VITALS: BP 160/90; PULSE 73; RESP 14; TEMP 36.6; O2SAT 93
[2019-12-21 03:09] VITALS: PULSE 61
[2019-12-21 04:41] LABS: Absolute Lymphocyte Count 1.07 X10^3/uL (0.83-4.51); Basophil# 0.01 X10^3/uL; Basophil% 0.2 % (0-1); Eosinophil# 0.05 X10^3/uL; Eosinophils% 0.9 % (0-5); Hematocrit 41.4 % (40-54); Hemoglobin 13.8 g/dL (13.0-16.5); Lymphocyte # 1.07 X10^3/ul (4.0); Lymphocyte % 18.9 % (19-41); Mean Corp Hgb Conc 33.3 g/dL (32-36); Mean Corpuscular Hgb 29.2 pg (27.0-32.0); Mean Corpuscular Volume 87.7 fL (80-94); Monocyte# 0.55 X10^3/uL; Monocyte% 9.7 % (0-10); NRBC Flagged by Analyzer 0 % (0-5); Neutrophil # 3.96 X10^3/uL (2.7-7.7); Neutrophil % 69.9 % (47-70); Platelet Count 227 K/mm3 (150-450); RBC Distribution Width SD 41.3 fl (35.1-43.9); Red Blood Count 4.72 M/mm3 (4.6-6.2); White Blood Count 5.7 K/mm3 (4.4-11.0)
[2019-12-21 04:53] LABS: Anion Gap 6 (5-15); BUN 21 mg/dL (7-18); Calcium,Total 8.4 mg/dL (8.5-10.1); Chloride 111 mmol/L (98-107); Creatinine, Serum 0.72 mg/dL (0.70-1.30); EST Glomerular Filtration Rate 115 mL/min (>60); Est Glom Filt Rate - Afr Amer 139 mL/min (>60); Estimated Creatinine Clearance 85.67 ml/min; Glucose 97 mg/dL (74-106); Potassium 3.3 mmol/L (3.5-5.1); Sodium Level 142 mmol/L (136-145)
--- NOTE | 2019-12-21 06:10 | PCM.PN.INT ---
Subjective: The patient was seen and examined at the bedside this morning. Events from the last 24 hours have been reviewed. The patient is currently afebrile, hemodynamically stable and maintaining appropriate oxygen saturations on room air. The patient converted from atrial fibrillation to normal sinus rhythm last evening. Potassium is low this morning at 3.3. He currently denies the presence of shortness of breath. He does report the presence of a nonproductive cough. Objective: The patient's most recent lab work, culture data and imaging studies have all been personally reviewed. Coronavirus PCR was positive on December 10. Strep and urine Legionella antigens were negative. General: Alert, Cooperative, No apparent distress HEENT: Atraumatic, PERRLA, Normocephalic Oral: Moist Mucosa, No Gingival or Mucosal Lesions/ Ulcerations Neck: Supple, No Nodes, Trachea Midline Lungs: No rhonchi, No wheeze, No rales, Diminished Cardiovascular: Regular rate, Regular Rhythm Abdomen: Bowel Sounds Present, Soft, Non Tender Extremities: No clubbing, No cyanosis, No edema Skin: No breakdown Musculoskeletal: No Tenderness to Palpation of Joints or Extremities Lymphatic: No Cervical, Supraclavicular, or Inguinal Adenopathy Neurological: Cranial nerves II-XII grossly intact, Neuro grossly intact Psych/Mental Status: Alert and oriented to time, place, person, mood and affect Vital Signs Temp Pulse Resp BP Pulse Ox 97.8 F 61 14 160/90 H 93 12/21/19 02:30 12/21/19 03:09 12/21/19 02:30 12/21/19 02:30 12/21/19 02:30 Oxygen Flow Rate (L/min) 2 Oxygen Delivery Method Room Air Weight: 244 lb 11.41 oz Body Mass Index (BMI) 30.6 Intake and Output for Last 24 Hours 12/19/19 12/20/19 12/21/19 23:59 23:59 23:59 Intake Total 320.25 / 320.25 1262 / 1262 60 / 60 Output Total 90 / 90 1300 / 1300 250 / 250 Balance 230.25 / 230.25 -38 / -38 -190 / -190 Labs (Last 48 Hours) 12/19/19 12/19/19 12/19/19 17:40 17:40 17:40 WBC 3.2 L RBC 4.95 Hgb 14.4 Hct 43.6 MCV 88.1 MCH 29.1 MCHC 33.0 RDW Std Deviation 42.5 RDW Coeff of Shira 13.2 Plt Count 188 MPV 9.9 Immature Gran % (Auto) 0.300 Neut % (Auto) 59.0 Lymph % (Auto) 28.6 Crenshaw % (Auto) 10.9 H Eos % (Auto) 0.9 Baso % (Auto) 0.3 Absolute Neuts (auto) 1.9 L Absolute Lymphs (auto) 0.92 Nucleated RBC % 0 Differential Comment SCANNED Diff Path Review D-Dimer Quant (PE/DVT) 0.55 H* Sodium 144 Potassium 3.0 L Chloride 110 H Carbon Dioxide 26.0 Anion Gap 8 BUN 15 Creatinine 0.70 Estim Creat Clear Calc 85.67 Est GFR (MDRD) Af Amer 146 Est GFR (MDRD) Non-Af 120 BUN/Creatinine Ratio 21.6 H Glucose 93 Calcium 8.6 Magnesium Total Bilirubin AST ALT Alkaline Phosphatase Troponin I 0.088 H B-Natriuretic Peptide Total Protein Albumin Globulin Albumin/Globulin Ratio Procalcitonin TSH 12/19/19 12/19/19 12/19/19 17:40 17:40 21:20 WBC RBC Hgb Hct MCV MCH MCHC RDW Std Deviation RDW Coeff of Shira Plt Count MPV Immature Gran % (Auto) Neut % (Auto) Lymph % (Auto) Crenshaw % (Auto) Eos % (Auto) Baso % (Auto) Absolute Neuts (auto) Absolute Lymphs (auto) Nucleated RBC % Differential Comment Diff Path Review D-Dimer Quant (PE/DVT) Sodium Potassium Chloride Carbon Dioxide Anion Gap BUN Creatinine Estim Creat Clear Calc Est GFR (MDRD) Af Amer Est GFR (MDRD) Non-Af BUN/Creatinine Ratio Glucose Calcium Magnesium 2.3 Total Bilirubin AST ALT Alkaline Phosphatase Troponin I B-Natriuretic Peptide 35.3 Total Protein Albumin Globulin Albumin/Globulin Ratio Procalcitonin 0.04 TSH 12/19/19 12/20/19 12/20/19 21:20 00:10 00:10 WBC RBC Hgb Hct MCV MCH MCHC RDW Std Deviation RDW Coeff of Shira Plt Count MPV Immature Gran % (Auto) Neut % (Auto) Lymph % (Auto) Crenshaw % (Auto) Eos % (Auto) Baso % (Auto) Absolute Neuts (auto) Absolute Lymphs (auto) Nucleated RBC % Differential Comment Diff Path Review D-Dimer Quant (PE/DVT) Sodium Potassium Chloride Carbon Dioxide Anion Gap BUN Creatinine Estim Creat Clear Calc Est GFR (MDRD) Af Amer Est GFR (MDRD) Non-Af BUN/Creatinine Ratio Glucose Calcium Magnesium Total Bilirubin AST ALT Alkaline Phosphatase Troponin I 0.073 H 0.075 H B-Natriuretic Peptide Total Protein Albumin Globulin Albumin/Globulin Ratio Procalcitonin TSH 1.45 12/20/19 12/20/19 12/21/19 03:40 03:40 04:35 WBC 3.4 L 5.7 RBC 5.02 4.72 Hgb 14.7 13.8 Hct 44.6 41.4 MCV 88.8 87.7 MCH 29.3 29.2 MCHC 33.0 33.3 RDW Std Deviation 43.0 41.3 RDW Coeff of Shira 13.2 13.0 Plt Count 198 227 MPV 10.3 10.0 Immature Gran % (Auto) 0.300 0.400 Neut % (Auto) 83.1 H 69.9 Lymph % (Auto) 13.4 L 18.9 L Crenshaw % (Auto) 3.2 9.7 Eos % (Auto) 0.0 0.9 Baso % (Auto) 0.0 0.2 Absolute Neuts (auto) 2.9 4.0 Absolute Lymphs (auto) 0.46 L 1.07 Nucleated RBC % 0 0 Differential Comment SCANNED Diff Path Review May foll D-Dimer Quant (PE/DVT) Sodium 141 Potassium 3.9 Chloride 110 H Carbon Dioxide 24.0 Anion Gap 7 BUN 12 Creatinine 0.61 L Estim Creat Clear Calc 85.67 Est GFR (MDRD) Af Amer 169 Est GFR (MDRD) Non-Af 140 BUN/Creatinine Ratio 19.7 Glucose 127 H Calcium 8.5 Magnesium Total Bilirubin 0.90 AST 50 H ALT 73 H Alkaline Phosphatase 80 Troponin I B-Natriuretic Peptide Total Protein 7.4 Albumin 3.2 Globulin 4.2 Albumin/Globulin Ratio 0.8 L Procalcitonin TSH 12/21/19 04:35 WBC RBC Hgb Hct MCV MCH MCHC RDW Std Deviation RDW Coeff of Shira Plt Count MPV Immature Gran % (Auto) Neut % (Auto) Lymph % (Auto) Crenshaw % (Auto) Eos % (Auto) Baso % (Auto) Absolute Neuts (auto) Absolute Lymphs (auto) Nucleated RBC % Differential Comment Diff Path Review D-Dimer Quant (PE/DVT) Sodium 142 Potassium 3.3 L Chloride 111 H Carbon Dioxide 25.0 Anion Gap 6 BUN 21 H Creatinine 0.72 Estim Creat Clear Calc 85.67 Est GFR (MDRD) Af Amer 139 Est GFR (MDRD) Non-Af 115 BUN/Creatinine Ratio 29.0 H Glucose 97 Calcium 8.4 L Magnesium Total Bilirubin AST ALT Alkaline Phosphatase Troponin I B-Natriuretic Peptide Total Protein Albumin Globulin Albumin/Globulin Ratio Procalcitonin TSH Microbiology 12/19/19 23:10 Urine, Clean Catch Streptococcus pneumoniae Antigen (M - Final 12/19/19 23:10 Urine, Clean Catch Legionella Antigen - Final Clinical Impression(s) from Imaging Studies Chest X-Ray 12/19/19 17:55 IMPRESSION: Hyperexpansion suggesting a component of COPD without acute consolidation, infiltrates, pleural effusion or cardiomegaly. Electronically Signed: Candace Downey MD at 18:18 EDT , Service support , Medical Necessity - Tobacco Use Smoking Status: Former smoker Assessment/Plan All Active Problems COVID-19 (Acute) Hypokalemia (Acute) Elevated troponin (Acute) Atrial fibrillation, new onset (Acute) RECOMMENDATIONS: 1. Await echocardiogram results. 2. Continue Lovenox and beta-zahira. 3. Encourage incentive spirometer use while in bed. 4. Mobilize patient as tolerated. 5. Perform walking oximetry study prior to consideration for discharge home. 6. Potassium repletion as ordered. 7. The patient could likely be discharged home later today, if echocardiogram is unremarkable. IMPRESSIONS: 1. Acute hypoxemic respiratory insufficiency Most likely precipitated by atrial fibrillation with RVR. Chest x-ray was without focal findings concerning for infection. The patient has subsequently converted back to normal sinus rhythm and has been weaned from supplemental oxygen. Mobilize patient as tolerated and encourage incentive spirometer use. 2. New onset atrial fibrillation with RVR/possible decompensated heart failure Continue beta-zahira and Lovenox as ordered. The patient has since converted back to normal sinus rhythm. Surface echocardiogram is pending this morning. 3. COVID-19 infection Continue current supportive measures. The patient is maintaining appropriate oxygen saturations on room air. 4. Hypokalemia Electrolyte repletion as ordered. This note was generated with [employer] dictation software. It may contain incorrect words, spelling, and punctuation that were not noted in checking the note before signing. Inpatient E&M: 94715 Subs Hosp L2
[2019-12-21 07:18] VITALS: PULSE 69
[2019-12-21] MEDS: Fluticasone 0.05% 1 SPRAY NASAL.SRY 2 SPRAY NASAL (08:17)
[2019-12-21] MEDS: Carvedilol 6.25 MG Tablet PO (08:18)
[2019-12-21] MEDS: dexAMETHasone 4 MG Tablet 6 MG PO (08:18)
[2019-12-21] MEDS: Aspirin 81 MG TAB.CHEW PO (08:18)
[2019-12-21] MEDS: Citalopram 10 MG Tablet 5 MG PO (08:19)
[2019-12-21] MEDS: Enoxaparin 120 MG/0.8 ML Syringe 110 MG SC (08:19)
[2019-12-21 08:30] VITALS: BP 164/74; PULSE 90; RESP 16; TEMP 37.1; O2SAT 98
--- NOTE | 2019-12-21 08:56 | CASEMGMT ---
RN CM Assessment Note Introduced role of CM to patient via phone. Patient states he was tested outpt for COVID, is positive and his was also tested recently-results should come back today for her. She has mild symptoms currently. Patient states he is independent, no care needs and plans to return home on discharge. -Patient has family/friends who can assist with bringing groceries, medications, etc. -Patient has access to masks, gloves and cleaning supplies -Discussed if 's test is negative, then continued isolation in the home would be necessary. Patient states they have been doing this and would continue. -No current DME @ home. Will continue to follow for any oxygen needs. Presentation/Diagnosis: shortness of breath, COVID positive PCP: Dr. Luis Pak Insurance: [facility] Prescription Benefit: yes LNOK: Stacy Living Arrangements: Lives independently at home with his . No care needs per patient. Tranportation: drives DME: none Patient DC Goals: Home DC Plan: anticipate home. Patient is currently on RA. Will continue to follow for any home needs. Contact CM for any concerns/needs that may arise. Brenda DIETRICH RN ACM
--- NOTE | 2019-12-21 10:19 | PCM.DC ---
- Discharge Diagnoses Current Active Problems: Current Active and Chronic Problems COVID-19 (Acute) Hypokalemia (Acute) Elevated troponin (Acute) Atrial fibrillation, new onset (Acute) You will use the following diet at home:: Cardiac Your food should be the consistency of: Regular Your liquids should be the consistency of: Regular/Thin Discharge Activity: Return to Normal Activity Weight Bearing Status: Weight bearing as tolerated Call your doctor if you observe: Fever of 101 or Higher, Shortness of breath, Chest pain, Increased palpitations (irregular heartbeat) Instructions: Atrial Fibrillation, ED Potassium Deficiency Additional Instructions: to have 2D echo on outpatient basis once self isolation for COVID 19 is over. To continue self isolating until symptoms resolve, then to continue self isolating for 3 more days after symptoms resolve. Allergies/Adverse Reactions: Allergies No Known Allergies Allergy (Verified 12/19/19 16:59) Medications to take at Discharge Benzonatate [Tessalon Perle] 100 mg PO TID PRN PRN 12/19/19 Citalopram Hydrobromide [Citalopram HBr] 20 mg PO DAILY 12/19/19 Fluticasone 0.05% [Flonase Nasal [place]] 2 spray NASAL DAILY 12/19/19 Apixaban [Eliquis] 5 mg PO BID #60 tab 12/21/19 Carvedilol [Coreg (Beta Gorge)] 6.25 mg PO BIDCM #60 tab 12/21/19 Potassium Chloride [K-Dur] 40 meq PO DAILYCM #30 tab 12/21/19 The following prescriptions were given: Carvedilol [Coreg (Beta [place]orge)] 6.25 mg PO BIDCM #60 tab Transmission Status: Pending to [facility] #30 Apixaban [Eliquis] 5 mg PO BID #60 tab Transmission Status: Pending to [facility] #30 Potassium Chloride [K-Dur] 40 meq PO DAILYCM #30 tab Transmission Status: Pending to [facility] #30 Primary Care Physician: Luis Pak MD [Primary Care Provider] - Please follow up with your Primary Care Physician in: 1-2 weeks Test Results: Test results from this visit will be discussed in further detail at your follow-up appointment, if applicable. Please Follow Up With: Eusebio James MD When: 2-3 weeks to establish cardiology care for Afib Proposed Discharge Date: 12/21/19
--- NOTE | 2019-12-21 10:26 | DS.PCM_ITS ---
Discharge Date and Diagnosis Date of Admission: 12/19/19 Date of Discharge: 12/21/19 - Primary Discharge Diagnosis Acute Problems: Active Problems COVID-19 (Acute) Hypokalemia (Acute) Elevated troponin (Acute) Atrial fibrillation, new onset (Acute) - Secondary Discharge Diagnosis Chronic Problems: Chronic Problems Anxiety (Chronic) History of hypertension (Chronic) History of gastroesophageal reflux (GERD) (Chronic) Hospital Course and Treatment Imaging Results: Diagnostic Data Chest X-Ray 12/19/19 17:55 IMPRESSION: Hyperexpansion suggesting a component of COPD without acute consolidation, infiltrates, pleural effusion or cardiomegaly. Electronically Signed: Candace Downey MD at 18:18 EDT , Service support , critical care Operations: None Procedures: None Summary of Care Provided: The patient is a 69 year old M with a past medical history which includes hypertension and history of reflux. He was admitted through the ED on 12/19/2019 with a complaint of progressively worsening shortness of breath. Patient had been diagnosed with COVID-19 on December 10. He does however self isolated at home and notices that his shortness of breath was gradually worsening and he also had some nocturnal shortness of breath with orthopnea and cough. Due to the persistence of his symptoms, he decided to come into the ED. Admission, troponins were noted to be mildly elevated. EKG showed no acute ST changes and showed some paroxysmal atrial complexes. He also had mild hypokalemia. Chest x-ray showed no acute cardiopulmonary process. He was admitted and managed for hypokalemia with elevated troponin and COVID-19 infection. He was started on p.o. dexamethasone and also started on antibiotics on account of elevated procalcitonin. Critical care was consulted. He was placed on therapeutic dose of anticoagulation on account of elevated d-dimer. He subsequently developed A. fib with RVR and was started on Cardizem drip. This was later treated and stopped and he was put on p.o. carvedilol. Patient symptoms subsequently resolved he felt much better. Patient remained stable and was discharged home on 12/21/2019. He was started on p.o. Eliquis as thromboembolic prophylaxis for A. fib. He was also discharged him on his carvedilol 6.25 mg twice daily. Patient is to have 2D echo on outpatient basis after his symptoms have resolved for COVID and he is done with the self isolation period. He is also to follow- up with cardiology and his primary care doctor. Patient seen and examined prior to discharge. He had no complaints and felt well. Review of symptoms otherwise negative. Labs and vitals reviewed. Home medication reviewed and reconciled. O/E: Vital Signs Temp Pulse Resp BP Pulse Ox 98.8 F 88 16 158/94 H 96 12/21/19 08:30 12/21/19 11:35 12/21/19 11:35 12/21/19 11:35 12/21/19 11:35 [] General: Alert, Oriented x3, Cooperative, No apparent distress HEENT: Atraumatic, PERRLA, EOMI, Normocephalic Oral: Moist Mucosa Neck: Supple, No JVD, Negative Carotid Bruits Lungs: - - Mildly diminished breath sounds bibasilar. No wheezes or crackles. On 2 L of oxygen. Cardiovascular: Normal S2, Irregular Rate - A. fib with RVR., Tachycardic Abdomen: Bowel Sounds Present, Soft, Non Tender, Non-Distended, No Hepato- splenomegaly Extremities: No clubbing, No cyanosis, No edema, Capillary Refill Less than 3 Se conds Skin: No rashes, No breakdown Musculoskeletal: No Tenderness to Palpation of Joints or Extremities Lymphatic: No Cervical, Supraclavicular, or Inguinal Adenopathy Neurological: Cranial nerves II-XII grossly intact, Neuro grossly intact, Motor Exam 5/5 strength throughout Psych/Mental Status: Normal Affect, Appropriate, Alert and oriented to time, place, person, mood and affect Plan as above. - Physical Exam Vitals/I&O's: Vital Signs Temp Pulse Resp BP Pulse Ox 98.8 F 90 16 164/74 H 98 12/21/19 08:30 12/21/19 08:30 12/21/19 08:30 12/21/19 08:30 12/21/19 08:30 Oxygen Flow Rate (L/min) 2 Oxygen Delivery Method Room Air Weight: 244 lb 11.41 oz Body Mass Index (BMI) 30.6 Intake and Output for Last 24 Hours 12/19/19 12/20/19 12/21/19 23:59 23:59 23:59 Intake Total 320.25 / 320.25 1262 / 1262 60 / 60 Output Total 90 / 90 1300 / 1300 250 / 250 Balance 230.25 / 230.25 -38 / -38 -190 / -190 Microbiology Past 72 Hours 12/19/19 23:10 Urine, Clean Catch Streptococcus pneumoniae Antigen (M - Final 12/19/19 23:10 Urine, Clean Catch Legionella Antigen - Final Laboratory Results 12/21/19 04:35: WBC 5.7, RBC 4.72, Hgb 13.8, Hct 41.4, MCV 87.7, MCH 29.2, MCHC 33.3, RDW Std Deviation 41.3, RDW Coeff of Shira 13.0, Plt Count 227, MPV 10.0, Immature Gran % (Auto) 0.400, Neut % (Auto) 69.9, Lymph % (Auto) 18.9 L, Hall % (Auto) 9.7, Eos % (Auto) 0.9, Baso % (Auto) 0.2, Absolute Neuts (auto) 4.0, Absolute Lymphs (auto) 1.07, Nucleated RBC % 0 12/21/19 04:35: Sodium 142, Potassium 3.3 L, Chloride 111 H, Carbon Dioxide 25.0, Anion Gap 6, BUN 21 H, Creatinine 0.72, Estim Creat Clear Calc 85.67, Est GFR (MDRD) Af Amer 139, Est GFR (MDRD) Non-Af 115, BUN/Creatinine Ratio 29.0 H, Glucose 97, Calcium 8.4 L Current Medications Acetaminophen (Tylenol) 650 mg PO Q6H PRN PRN PRN Reason: Pain Score 1-10/Temp > 100.7 F Albuterol Sulfate (Ventolin Hfa (Sp)) 2 puff INHALATION Q4H PRN PRN PRN Reason: SOB/WHEEZING Aspirin (Aspirin, Baby) 81 mg PO DAILY@0800 ON LICENSE OF [facility] Last Admin: 12/21/19 08:18 Dose: 81 mg Documented by: Benzonatate (Tessalon Perle) 100 mg PO TID PRN PRN PRN Reason: COUGH Carvedilol (Coreg) 6.25 mg PO BIDCM ON LICENSE OF [facility] Last Admin: 12/21/19 08:18 Dose: 6.25 mg Documented by: Citalopram Hydrobromide (Celexa) 5 mg PO DAILY ON LICENSE OF [facility] Last Admin: 12/21/19 08:19 Dose: 5 mg Documented by: Dexamethasone (Decadron) 6 mg PO DAILY@0800 ON LICENSE OF [facility] Last Admin: 12/21/19 08:18 Dose: 6 mg Documented by: Enoxaparin Sodium (Lovenox) 110 mg SC Q12 ON LICENSE OF [facility] Last Admin: 12/21/19 08:19 Dose: 110 mg Documented by: Fluticasone Propionate (Flonase Nasal [place]) 2 spray NASAL DAILY ON LICENSE OF [facility] Last Admin: 12/21/19 08:17 Dose: 2 spray Documented by: Sodium Chloride () 250 mls @ 15 mls/hr IV .[id number] PRN PRN Reason: Saline Flush Last Infusion: 12/20/19 06:38 Dose: 0 mls/hr Documented by: Sodium Chloride () 250 mls @ 15 mls/hr IV .[id number] PRN PRN Reason: Additional IVPB Infusion Melatonin (Melatonin) 3 mg PO QHS PRN PRN PRN Reason: INSOMNIA Miscellaneous Information (Pocket Chamber) 1 each INHALATION PRN PRN PRN Reason: USE WITH VENTOLIN MDI Potassium Ch[facility] ([facility]) [facility] Admin: 12/21/19 08:19 Dose: 40 meq Documented by: Sodium Chloride () 10 - 40 ml IV UD PRN PRN Reason: SALINE FLUSH Last Admin: 12/20/19 03:31 Dose: 40 ml Documented by: Discharge Diet: Low fat/ Low Cholesterol Discharge Activity: Return to Normal Activity Weight Bearing Status: Weight bearing as tolerated Call your doctor if you observe: Fever of 101 or Higher, Shortness of breath, Chest pain, Increased palpitations (irregular heartbeat) Home Medications: Medications to take at Discharge Benzonatate [Tessalon Perle] 100 mg PO TID PRN PRN 12/19/19 Citalopram Hydrobromide [Citalopram HBr] 20 mg PO DAILY 12/19/19 Fluticasone 0.05% [Flonase Nasal [place]] 2 spray NASAL DAILY 12/19/19 Apixaban [Eliquis] 5 mg PO BID #60 tab 12/21/19 Carvedilol [Coreg (Beta Gorge)] 6.25 mg PO BIDCM #60 tab 12/21/19 Potassium Chloride [K-Dur] 40 meq PO DAILYCM #30 tab 12/21/19 Following Prescriptions Were Given to Patient: Carvedilol [Coreg (Beta [place]orge)] 6.25 mg PO BIDCM #60 tab Transmission Status: Received by [facility] #30 Apixaban [Eliquis] 5 mg PO BID #60 tab Transmission Status: Received by [facility] #30 Potassium Chloride [K-Dur] 40 meq PO DAILYCM #30 tab Transmission Status: Received by [facility] #30 Primary Care Physician: Luis Pak MD [Primary Care Provider] - Please follow up with your Primary Care Physician in: 1-2 weeks Please Follow Up With: Eusebio James MD When: 2-3 weeks to establish cardiology care for Afib Patient Instructions: Atrial Fibrillation, ED Potassium Deficiency Disposition: Home Minutes spent on discharge:: 35 Patient Condition:: Stable Medical Necessity - Tobacco Use Smoking Status: Former smoker Meaningful Use Info Meaningful Use Diagnoses (Choose all that apply): None applicable Inpatient E&M: 52634 [facility] Hosp
[2019-12-21 11:35] VITALS: BP 158/94; PULSE 88; RESP 16; O2SAT 96
[2019-12-21 12:57] LABS: Pathologist Review Reviewed
== END 2019-12-21 11:35 | disposition home or self-care (01) | DRG 308 ==
LOC: ED 18:38 → ICU 19:57
PROVIDERS: Admitting Provider Hospitalist; Emergency Provider Emergency Medicine; PCP Family Medicine; Visit Provider Student in an Organized Health Care Education/Training Program
DX: I48.91 Unspecified atrial fibrillation (principal); U07.1 COVID-19; I24.8 Other forms of acute ischemic heart disease; R09.02 Hypoxemia; F41.9 Anxiety disorder, unspecified; K21.9 Gastro-esophageal reflux disease without esophagitis; Z79.899 Other long term (current) drug therapy; Z87.891 Personal history of nicotine dependence; E87.6 Hypokalemia; I49.1 Atrial premature depolarization; E66.9 Obesity, unspecified; Z68.30 Body mass index [BMI] 30.0-30.9, adult; F32.9 Major depressive disorder, single episode, unspecified; I11.0 Hypertensive heart disease with heart failure; I50.9 Heart failure, unspecified
CPT/HCPCS: 71045; 80048; 80053; 83735; 83880; 84145; 84443; 84484; 85025; 85379; 87449; 93005; 99285; J7050; A4216

== ENCOUNTER → 2020-01-25 12:38 | Outpatient (CLI) | payer MEDICARE, OTHER, SELFPAY ==
[2019-12-19 20:49] VITALS: BMI 30.6
--- NOTE | 2020-01-25 12:40 | ECHOD_ITS ---
Reason For Study: DYSPNEA/SOB Procedure This was a 2D Doppler, Color Flow transthoracic echocardiogram. Exam performed in department. Left Ventricle Normal LV size. Left ventricular systolic function is normal. The estimated ejection fraction is 55 %. No regional wall motion abnormalities noted. Right Ventricle Normal RV size. Normal systolic function. Atria Normal left atrium. Normal right atrium. Mitral Valve Normal mitral valve. Tricuspid Valve Normal tricuspid valve. Aortic Valve Normal aortic valve. Pulmonic Valve Normal pulmonic valve. Great Vessels Normal aortic root. The pulmonary artery is normal size. Normal inferior vena cava. Pericardium/Pleural No pericardial effusion. MMode/2D Measurements & Calculations LVIDd: 4.5 cm IVSd: 1.1 cm LVOT diam: 2.1 cm LVIDs: 3.1 cm LVPWd: 1.1 cm LVOT area: 3.5 cm2 RVDd: 3.8 cm FS: 31.8 % Ao root diam: 3.3 cm LAV(MOD-bp): 65.0 ml LVAd ap4: 42.5 cm2 LAV(MOD-bp) Indexed: 27.4 ml/m2 EDV(MOD-sp4): 156.5 ml LAV(MOD-sp2): 65.4 ml EDV(sp4-el): 158.8 ml LAV(MOD-sp4): 56.4 ml LVAs ap4: 25.6 cm2 ESV(MOD-sp4): 65.5 ml ESV(sp4-el): 66.7 ml EF(MOD-sp4): 58.2 % EF(sp4-el): 58.0 % SV(MOD-sp4): 91.0 ml SV(sp4-el): 92.1 ml LA A4 area: 19.4 cm2 LA dimension(2D): 4.0 cm RA A4 area: 15.2 cm2 Time Measurements MV dec time: 0.39 sec Doppler Measurements & Calculations MV E max trent: 63.5 cm/sec Lat Peak E' Trent: 7.9 cm/sec Med Peak E' Trent: 5.4 cm/sec MV A max trent: 70.4 cm/sec E/E' lat: 8.1 E/E' med: 11.8 MV E/A: 0.90 Ao V2 max: 197.2 cm/sec LV V1 max: 108.3 cm/sec SV(LVOT): 90.2 ml Ao max P.6 mmHg LV V1 max P.7 mmHg Ao V2 mean: 145.3 cm/sec LV V1 mean P.5 mmHg Ao mean P.2 mmHg LV V1 mean: 73.2 cm/sec Ao V2 VTI: 44.3 cm LV V1 VTI: 25.8 cm ORESTES(I,D): 2.0 cm2 ORESTES(V,D): 1.9 cm2 PA V2 max: 170.5 cm/sec Interpretation Summary Normal LV size. Left ventricular systolic function is normal. The estimated ejection fraction is 55 %. Structurally normal valves. Ordering Physician: Eusebio James Referring Physician: JOSE ANGEL MORAN Performed By: Solange Chaudhry RDCS
== END ==
PROVIDERS: PCP Family Medicine; Referring Provider Internal Medicine Cardiovascular Disease; Visit Provider Internal Medicine Cardiovascular Disease
DX: I48.91 Unspecified atrial fibrillation (principal); U07.1 COVID-19; I10 Essential (primary) hypertension; E87.6 Hypokalemia; R79.89 Other specified abnormal findings of blood chemistry; R06.00 Dyspnea, unspecified
CPT/HCPCS: 93306

== ENCOUNTER → 2020-01-27 10:38 | Outpatient (CLI) | payer MEDICARE, OTHER, SELFPAY ==
[2020-01-27 08:55] VITALS: BMI 32.3
[2020-01-27 11:42] LABS: Anion Gap 3 (5-15); BUN 13 mg/dL (7-18); Chloride 106 mmol/L (98-107); Creatinine, Serum 0.68 mg/dL (0.70-1.30); EST Glomerular Filtration Rate 123 mL/min (>60); Est Glom Filt Rate - Afr Amer 148 mL/min (>60); Glucose 88 mg/dL (74-106); Sodium Level 137 mmol/L (136-145)
== END ==
PROVIDERS: PCP Family Medicine; Referring Provider Internal Medicine Cardiovascular Disease; Visit Provider Internal Medicine Cardiovascular Disease
DX: I48.91 Unspecified atrial fibrillation (principal); U07.1 COVID-19; E87.6 Hypokalemia
CPT/HCPCS: 36415; 80048

== ENCOUNTER → 2020-03-14 06:00 | Outpatient (CLI) | payer MEDICARE, OTHER, SELFPAY ==
[2020-01-27 08:55] VITALS: BMI 32.3
--- NOTE | 2020-03-14 10:59 | STRESSREP ---
Stress Test Report Exercise myocardial perfusion stress test. 69-year-old man with a history of shortness of breath. Previous Covid. Stress protocol: Resting EKG demonstrates normal sinus rhythm with a rate of 80 bpm normal intervals are noted resting blood pressure is 164/94 mmHg. The patient exercised according to regular Mello protocol for 4 minutes and 16 seconds. The maximum heart rate attained was 164 bpm which was 107% of maximum predicted heart rate the maximum workload was 6.1 metabolic equivalents. Occasional premature ventricular complexes were noted. Upsloping ST changes only were noted with no meet the criteria for ischemia. The peak blood pressure was 202/88 mmHg. The test was terminated due to dyspnea and fatigue. The above suggests a hypertensive response to exercise. No evidence of atrial fibrillation was noted. Myocardial perfusion protocol. 14.6 mCi of technetium 99m sestamibi was injected at rest. Patient exercised according to regular Mello protocol for total duration of 4 minutes and 16 seconds. At peak exercise 44.8 mCi of technetium 99m sestamibi was injected stress stress and rest images were reconstructed and compared in the short axis vertical long horizontal long axis. Gated images were also obtained Perfusion SPECT analysis: Review of the stress images demonstrate normal uptake of tracer noted in all areas of the myocardium the resting images similarly demonstrate normal uptake of tracer noted in all areas of the myocardium. No reversibility is noted to suggest ischemia no previous infarct is noted. Gated SPECT analysis: The gated ejection fraction is 61%. Conclusion: Normal exercise myocardial perfusion stress test at a moderate workload. Hypertensive response to exercise. No atrial fibrillation noted.
== END ==
PROVIDERS: PCP Family Medicine; Referring Provider Internal Medicine Cardiovascular Disease; Visit Provider Internal Medicine Cardiovascular Disease
DX: I25.10 Atherosclerotic heart disease of native coronary artery without angina pectoris (principal); I48.91 Unspecified atrial fibrillation
CPT/HCPCS: 78452; 93017; A9500; A4216

== ENCOUNTER 2021-06-09 07:48 | Outpatient (CLI) | payer MEDICARE, OTHER, SELFPAY ==
--- NOTE | 2021-06-09 07:50 | CDU_ITS ---
Reason For Study: LEFT CAROTID BRUIT Rt. Velocities/BP Lt. Velocities/BP Prox CCA 67.3/17.7 cm/sec. Prox CCA 112.5/28.5 cm/sec. Mid CCA 85.6/23.0 cm/sec. Mid CCA 97.9/30.3 cm/sec. Dist CCA 76.4/24.3 cm/sec. Dist CCA 77.8/13.9 cm/sec. Prox ICA 73.8/20.3 cm/sec. Prox ICA 76.9/16.7 cm/sec. Mid ICA 55.6/23.0 cm/sec. Mid ICA 81.8/36.3 cm/sec. Dist ICA 63.4/26.9 cm/sec. Dist ICA 72.0/29.0 cm/sec. Rt. ICA/CCA = 1.0. Lt. ICA/CCA = .8. Prox ECA 85.6/15.1 cm/sec. Prox ECA 138.1/14.2 cm/sec. Rt. Vert. 41.2/20.3 cm/sec. Lt. Vert. 42.5/14.2 cm/sec. Right Extracranial There is homogeneous, smooth atherosclerotic plaque noted in the right common carotid artery. There is heterogeneous, irregular atherosclerotic plaque noted in the right internal carotid artery. There is heterogeneous, irregular atherosclerotic plaque noted in the right external carotid artery. Antegrade flow is noted in the right vertebral artery. Left Extracranial There is homogeneous, smooth atherosclerotic plaque noted in the left common carotid artery. There is no significant atherosclerotic plaque noted in the left internal carotid artery. There is heterogeneous, irregular atherosclerotic plaque noted in the left external carotid artery. Antegrade flow is noted in the left vertebral artery. Procedure Carotid Duplex [id number]. Exam performed in department. VL/Carotid Duplex Ultrasound Interpretation Summary No hemodynamically significant plaque or stenosis bilateral extracranial physician internist al carotid arteries with less than 50% stenosis. Less than 50% stenosis bilateral external carotid arteries Patent and antegrade vertebral arteries bilaterally Ordering Physician: Daria Kate Referring Physician: JOSE ANGEL MORAN Performed By: Abby Santamaria, LUANN, RVT
== END 2021-06-09 23:59 | disposition home or self-care (01) ==
LOC: CVS 07:50
PROVIDERS: PCP Family Medicine; Referring Provider Physician Assistant Medical; Visit Provider Physician Assistant Medical
DX: R09.89 Other specified symptoms and signs involving the circulatory and respiratory systems (principal)
CPT/HCPCS: 93880

== ENCOUNTER → 2024-04-15 | Outpatient (CLI) | payer MEDICARE, OTHER, SELFPAY ==
--- NOTE | 2024-04-15 07:41 | EKG12_ITS ---
Test Reason : PREOP Blood Pressure : */* mmHG Vent. Rate : 75 BPM Atrial Rate : 75 BPM P-R Int : 202 ms QRS Dur : 86 ms QT Int : 402 ms P-R-T Axes : 74 -15 76 degrees QTcB Int : 448 ms Normal sinus rhythm Septal infarct , age undetermined Abnormal ECG Confirmed by WILLIAN KOCH, TREY ([id number]), acquisitions editor BRENDON CARLOS ([id number]) on 04/15/2024 1:44:54 PM Referred By: Jered Shell Confirmed By: TREY DORSEY MD
--- NOTE | 2024-04-15 07:42 | CT_ITS ---
CT LEFT LOWER EXTREMITY WITH 3-D IMAGING CLINICAL INDICATION: PAIN IN LEFT KNEE- PER-OP AYANNA KNEE TECHNIQUE: Axial CT images of the LEFT lower extremity was performed without IV contrast material. Coronal and sagittal reformats were provided. The protocol utilizes one or more of the following dose reduction techniques: automated exposure control, adjustment of mA and/or kV according to patient size,and/or use of iterative reconstruction technique. RADIATION DOSAGE (If Supplied By Facility): CTDIvol = ( 19.28 ) mGy, DLP = ( 1334.01 ) mGycm COMPARISON: No relevant prior comparison study available FINDINGS: Bones: Imaging of the left hip joint was obtained. There is good alignment. No significant abnormality is seen. Imaging of the left knee joint was obtained. Marked degree of medial joint space narrowing with subchondral cystic changes and degenerative spur formation. Moderate degree of degenerative spur formation along the distal femur with a moderate degree of joint space narrowing at the patellofemoral joint. Soft Tissues: Joint effusion. Vascular calcification. Imaging of the ankle joint was obtained. No significant abnormality is seen. The superficial soft tissues are unremarkable without evidence of edema, hematoma, or foreign body. CT/Extremity Lower without Contra IMPRESSION: Marked degree of joint space narrowing involving the medial compartment of the knee joint with subchondral cystic changes and degenerative spur formation along the medial compartment knee joint. Moderate degree of joint space narrowing of the patellofemoral joint with the vagina spur formation along the anterior distal femur. Electronically Signed: Anthony Paez MD at 14:43 EST ,
[2024-04-15 08:14] LABS: Absolute Lymphocyte Count 1.09 X10^3/uL (0.83-4.51); Absolute Neutrophil Count 2.7 X10^3/uL (2.0-7.7); Basophil# 0.06 X10^3/uL; Basophil% 1.3 % (0-1); Eosinophil# 0.08 X10^3/uL; Eosinophils% 1.8 % (0-5); Hematocrit 43.8 % (40-54); Hemoglobin 14.5 g/dL (13.0-16.5); Lymphocyte # 1.09 X10^3/ul (0.83-4.51); Lymphocyte % 24.4 % (19-41); Mean Corp Hgb Conc 33.1 g/dL (32-36); Mean Corpuscular Hgb 30.4 pg (27.0-32.0); Mean Corpuscular Volume 91.8 fL (80-94); Mean Platelet Vol. 10.2 fl (6.2-12.0); Monocyte# 0.53 X10^3/uL; Monocyte% 11.9 % (0-10); NRBC Flagged by Analyzer 0 % (0-5); Neutrophil # 2.69 X10^3/uL (2.7-7.7); Neutrophil % 60.4 % (47-70); Platelet Count 201 K/mm3 (150-450); RBC Distribution Width CV 13.2 % (11.6-14.6); RBC Distribution Width SD 43.8 fl (35.1-43.9); Red Blood Count 4.77 M/mm3 (4.6-6.2); White Blood Count 4.5 K/mm3 (4.4-11.0)
[2024-04-15 08:53] LABS: Albumin, Serum 3.7 g/dL (3.2-5.0); Anion Gap 3 (5-15); BUN 20 mg/dL (7-18); Calcium,Total 8.9 mg/dL (8.5-10.1); Chloride 110 mmol/L (98-107); Creatinine, Serum 0.74 mg/dL (0.70-1.30); EST Glomerular Filtration Rate 110 mL/min (>60); Est Glom Filt Rate - Afr Amer 133 mL/min (>60); Glucose 96 mg/dL (74-106); Potassium 3.9 mmol/L (3.5-5.1); Sodium Level 139 mmol/L (136-145)
== END | disposition home or self-care (01) ==
LOC: CT 07:36
PROVIDERS: PCP Family Medicine; Referring Provider Specialist; Visit Provider Specialist
DX: Z01.810 Encounter for preprocedural cardiovascular examination (principal); M17.12 Unilateral primary osteoarthritis, left knee; M25.562 Pain in left knee
CPT/HCPCS: 36415; 73700; 80048; 82040; 85025; 93005

== ENCOUNTER → 2024-05-07 | Outpatient (CLI) | payer MEDICARE, OTHER, SELFPAY ==
--- NOTE | 2024-05-07 07:52 | RAD_ITS ---
INDICATION: COUGH, PRE OP EXAMINATION/TECHNIQUE: X-RAY - XR Chest 2 Views COMPARISON: December 19, 2019 FINDINGS: LINES/DEVICES: None. LUNGS: The lungs are hyperinflated. No consolidation, edema or effusion. No pneumothorax. MEDIASTINUM AND CARDIOVASCULAR STRUCTURES: Cardiac silhouette not enlarged. Central airways and mediastinal contour are unremarkable. BONES AND SOFT TISSUES: There are degenerative changes of the thoracic spine. RAD/Chest PA and Lateral IMPRESSION: Hyperinflated lungs. Electronically Signed: Ayla Mercedes MD at 15:06 EST ,
== END | disposition home or self-care (01) ==
LOC: RAD 07:47
PROVIDERS: PCP Family Medicine; Referring Provider Physician Assistant Surgical; Visit Provider Physician Assistant Surgical
DX: Z01.818 Encounter for other preprocedural examination (principal); R05.9 Cough, unspecified
CPT/HCPCS: 71046